=== PATIENT | female | born 1935 | race American Indian/Alaskan Native ===

== ENCOUNTER 2021-12-07 07:52 | Outpatient (CLI) | payer MEDICARE ==
[2021-12-07] MEDS ORDERED: BENZOCAINE 20% TOP SPRAY 0.5 ML UNIT DOSE MM NR (08:00)
[2021-12-07] MEDS ORDERED: SODIUM CHLORIDE 0.9% 500 ML 500 ML IV SCH (08:00)
[2021-12-07] MEDS ORDERED: MIDAZOLAM 2 MG/2 ML INJ ONE (08:18)
[2021-12-07] MEDS ORDERED: KETAMINE/STERILE WATER 50 MG/ML SYRINGE ONE (08:18)
[2021-12-07] MEDS ORDERED: propofoL 200 MG/20 ML VIAL IV ONE (08:18)
--- NOTE | 2021-12-07 08:24 | Anesthesia Day of Surgery ---
Anesthesia Day of Surgery - Day of Surgery Patient Examined: Yes Patient H&P Reviewed: Yes Patient is NPO: Yes
--- NOTE | 2021-12-07 08:27 | Anesthesia Consultation ---
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
[2021-12-07 08:59] LABS: Hematocrit 39.4 % (30.3-42.9); Hemoglobin 12.8 gm/dl (10.1-14.3); Mean Corpuscular HGB Conc 32 % (30-34); Mean Corpuscular Volume 86 fl (79-97); Platelet Count 208 K/mm3 (140-440); Red Blood Count 4.57 M/mm3 (3.65-5.03); Red Cell Distribution Width 15.7 % (13.2-15.2)
[2021-12-07 09:26] LABS: BUN/Creatinine Ratio 13; Blood Urea Nitrogen 12 mg/dL (7-17); Calcium 9.7 mg/dL (8.4-10.2); Hemolysis Index 66
[2021-12-07 10:55] VITALS: BP 136/76
[2021-12-07 11:07] LABS: INR 0.96 (0.87-1.13)
[2021-12-07 11:08] LABS: Partial Thromboplastin Time 30.2 Sec. (24.2-36.6)
--- NOTE | 2021-12-07 11:36 | Short Stay Summary ---
Short Stay Documentation Date of service: 12/07/21 Narrative H&P: See HPI - History H&P: obtained from office - Allergies and Medications Current Medications: Allergies No Known Allergies Allergy (Unverified 10/29/21 10:08) Home Medications Medication Instructions Recorded Confirmed Last Taken Type Ascorbic Acid [Vitamin C with Mitzy 500 mg PO DAILY 12/07/21 12/07/21 12/06/21 History Hips] 1 TAB Aspirin EC [Halfprin EC] 81 mg PO QDAY 12/07/21 12/07/21 12/06/21 History 1 TAB AtorvaSTATin [Lipitor] 10 mg PO QHS 12/07/21 12/07/21 12/06/21 History 1 TAB Folic Acid [Folvite] 1 mg PO QDAY 12/07/21 12/07/21 12/06/21 History 1 TAB Furosemide [Lasix] 20 mg PO QDAY 12/07/21 12/07/21 12/06/21 History 1 TAB Insulin Glargine,Hum.rec.anlog 20 unit SQ QHS 12/07/21 12/07/21 12/06/21 History [Lantus Solostar] Letrozole (Nf) [Femara (Nf)] 2.5 mg PO QDAY 12/07/21 12/07/21 12/06/21 History 1 TAB Pantoprazole [Protonix] 40 mg PO QDAY 12/07/21 12/07/21 12/06/21 History 1 TAB Sacubitril/Valsartan [Entresto 24 1 tab PO BID 12/07/21 12/07/21 12/06/21 History - 26 mg] 1 TAB carvediloL [Coreg] 6.25 mg PO BID 12/07/21 12/07/21 12/06/21 History 2 TABS Active Medications Benzocaine (Benzocaine 20% Top [place] 0.5 Ml Unit Dose) 3 spray MM PREOP NR Stop: 12/07/21 17:00 Last Admin: 12/07/21 09:07 Dose: 3 spray Sodium Chloride (Nacl 0.9% 500 Ml) 500 mls @ 50 mls/hr IV DIRECT RODRÍGUEZ Stop: 12/07/21 18:00 Last Admin: 12/07/21 09:15 Dose: 50 mls/hr - Physical exam General appearance: no acute distress HEENT: PERRLA - Brief post op/procedure progress note Date of procedure: 12/07/21 Pre-op diagnosis: Bacteremia rule out endocarditis Post-op diagnosis: other (No sign of intracardiac thrombus mass or vegetation) Anesthesia: MAC Estimated blood loss: none - Disposition Condition at discharge: Stable Disposition: 01 HOME / SELF CARE / HOMELESS - Discharge Diagnoses (1) Bacteremia Status: Acute Short Stay Discharge Plan Activity: no restrictions Diet: low fat, low cholesterol, low salt Wound: per your surgeon's advice Follow up with: HERNESTO COLLIER MD [Primary Care Provider] - 7 Days ANGEL ISAAC MD [Staff Physician] - 7 Days (Patient should follow-up with Dr AILEEN Isaac with [facility] on 03/04/2022 at 1145 in our [place] location. [phone])
--- NOTE | 2021-12-07 16:20 | Post Anesthesia Evaluation ---
- Post Anesthesia Evaluation Patient Participated: Yes Airway Patent: Yes Stable Respiratory Function: Yes Nausea/Vomiting: No Temp > 96.8F: Yes Pain Manageable: Yes Adequeate Hydration: Yes Anesthesia Complications: No Block Receding Appropriately: Not Applicable Patient on Ventilator: No
== END 2021-12-07 07:53 | disposition home or self-care (01) ==
LOC: CATHLABREC 07:52
PROVIDERS: ATTEND Internal Medicine
DX: I42.9 Cardiomyopathy, unspecified (principal); R78.81 Bacteremia; I08.1 Rheumatic disorders of both mitral and tricuspid valves; I11.0 Hypertensive heart disease with heart failure; I50.9 Heart failure, unspecified; I25.10 Atherosclerotic heart disease of native coronary artery without angina pectoris; K21.9 Gastro-esophageal reflux disease without esophagitis; F03.90 Unspecified dementia, unspecified severity, without behavioral disturbance, psychotic disturbance, mood disturbance, and anxiety; E11.9 Type 2 diabetes mellitus without complications; Z95.5 Presence of coronary angioplasty implant and graft; Z79.82 Long term (current) use of aspirin; Z79.899 Other long term (current) drug therapy; Z79.4 Long term (current) use of insulin; Z87.891 Personal history of nicotine dependence; Z85.3 Personal history of malignant neoplasm of breast; Z85.118 Personal history of other malignant neoplasm of bronchus and lung
CPT/HCPCS: 36415; 80048; 85027; 85610; 85730; 93312; 93320; 93325; J2250; J2704; J3490; J7040